=== PATIENT | male | born 1960 | race Caucasian/White ===

== ENCOUNTER 2017-09-04 13:00 | Inpatient (IN) | payer BC ==
[2017-09-15] MEDS ORDERED: MECLIZINE 25 MG TABLET PO ONE (06:00)
[2017-09-15] MEDS ORDERED: ACETAMINOPHEN 1,000 MG/100 ML BTL IV ONE (06:00)
[2017-09-15] MEDS ORDERED: FAMOTIDINE 20MG TABLET PO ONE ×2 (06:00→07:44)
[2017-09-15] MEDS ORDERED: VANCOMYCIN HCL 1,000 MG in DEXTROSE 5 % IN WATER 250 ML IVPB ONE ×2 (06:00)
[2017-09-15] MEDS ORDERED: METOCLOPRAMIDE 10 MG TABLET PO ONE (06:00)
[2017-09-15] MEDS ORDERED: CELECOXIB 100 MG CAPSULE PO ONE (06:00)
[2017-09-15] MEDS ORDERED: BUPIVACAINE LIPOSOME 266MG/20ML VIAL IV ONE (07:44)
[2017-09-15] MEDS ORDERED: TRANEXAMIC ACID 1,000 MG/10 ML ML IV ONE ×2 (07:44)
[2017-09-15] MEDS ORDERED: BUPIVACAINE 0.5% W/EPI MPF 30 ML VIAL IVP ONE ×2 (07:44)
[2017-09-15] MEDS ORDERED: DEXAMETHASONE 4 MG/ML 1ML VIAL IVP ONE (07:44)
[2017-09-15] MEDS ORDERED: ROPIVACAINE HCL (NAROPIN) /PF 5MG/ML 20ML VIAL IV ONE (07:44)
[2017-09-15] MEDS ORDERED: VANCOMYCIN HCL 1 GM VIAL IVPB ONE ×2 (07:44)
[2017-09-15 09:01] LABS: ABO GROUP A; ANTIBODY SCREEN NEGATIVE (NEGATIVE); RH TYPE POSITIVE
[2017-09-15] MEDS ORDERED: ACETAMINOPHEN W/ CODEINE 300MG/30MG TABLET PO PRN ×2 (10:21)
[2017-09-15] MEDS ORDERED: ACETAMINOPHEN 325 MG TAB PO PRN (10:21)
[2017-09-15] MEDS ORDERED: HYDROMORPHONE HCL 2 MG/ML VIAL IM PRN ×2 (10:21)
[2017-09-15] MEDS ORDERED: METOCLOPRAMIDE HCL 10 MG/2 ML VIAL IVP PRN (10:21)
[2017-09-15] MEDS ORDERED: DIPHENHYDRAMINE HCL 25 MG CAPSULE PO PRN (10:21)
[2017-09-15] MEDS ORDERED: ONDANSETRON HCL IV 4 MG/2 ML VIAL IVP PRN (10:21)
[2017-09-15] MEDS ORDERED: HYDROCODONE/APAP 5/325MG TABLET PO PRN ×2 (10:21)
[2017-09-15] MEDS ORDERED: KETOROLAC 30 MG/ML VIAL IVP PRN ×2 (10:21)
[2017-09-15] MEDS ORDERED: HYDROCODONE/APAP 7.5/325MG TABLET PO PRN (10:21)
[2017-09-15] MEDS ORDERED: ACETAMINOPHEN W/ CODEINE 300MG/60MG TABLET PO PRN ×2 (10:21)
[2017-09-15] MEDS ORDERED: PROMETHAZINE HCL 12.5 MG in 0.9 % SODIUM CHLORIDE 100ML 50 ML IVPB PRN (10:21)
[2017-09-15] MEDS ORDERED: NALOXONE 0.4 MG/1 ML VIAL IVP PRN (10:21)
[2017-09-15] MEDS ORDERED: TRAMADOL HCL 50 MG TABLET PO PRN ×2 (10:21)
[2017-09-15] MEDS ORDERED: ZOLPIDEM TARTRATE 5 MG TABLET PO PRN (10:21)
[2017-09-15] MEDS ORDERED: BISACODYL 10 MG SUPP RC PRN (10:21)
[2017-09-15] MEDS ORDERED: MAGNESIUM HYDROXIDE 30 ML UDC PO PRN (10:21)
[2017-09-15] MEDS ORDERED: AL HYDROX/MAG HYDROX 30ML UD PO PRN (10:21)
[2017-09-15] MEDS ORDERED: PATIENT OWN MED: PROAIR HFA INH PRN (13:00)
[2017-09-15] MEDS ORDERED: FENTANYL PF 100MCG/2ML VIAL IV ONE (14:00)
[2017-09-15] MEDS ORDERED: PROPOFOL 10 MG/ML VIAL IV ONE (14:00)
[2017-09-15] MEDS ORDERED: MIDAZOLAM HCL 2MG/2ML VIAL IV ONE (14:00)
[2017-09-15] MEDS ORDERED: LIDOCAINE 1% MDV (10MG/ML) 20ML VIAL SQ ONE (14:00)
[2017-09-15] MEDS: TRIAMTERENE 37.5/HCTZ 25 CAPSULE PO SCH (15:40)
[2017-09-15] MEDS: HYDROCODONE/APAP 7.5/325MG TABLET PO PRN ×2 (15:40→19:29)
[2017-09-15] MEDS: QUINAPRIL HCL 10 MG TABLET PO SCH (15:41)
--- NOTE | 2017-09-15 15:46 | Rehab Evaluation ---
Patient Information - Patient Information Diagnosis: R knee OA Ordered Treatment: PT Evaluate and Treat Status: Initial Evaluation Surgery: Yes (TKA R LE) Date of Surgery: 09/15/17 Past Medical/Surgical Hx: PAST MEDICAL/SURGICAL HISTORY Past Surgical History c scope EGD PMH - Respiratory Hx Respiratory Disorders Yes Hx Asthma Yes: controlled with inhalers humidity and dampness bothers it Hx Bronchitis Yes Hx of SOB Yes: occassionally PMH - Cardiovascular Hx Cardiovascular Disorders Yes Hx Hypertension Yes: on meds good control Exercise Tolerance Good PMH - Neuro Hx Neurological Disorders No PMH - GI Hx Gastrointestinal Disorders No PMH - Hx Genitourinary Disorders No PMH - Endocrine Hx Endocrine Disorders Yes Hx Diabetes Yes: dx'd 10 yrs ago Hx of NIDDM Yes Comment: A1C 6.2 PMH - Musculoskeletal Hx Musculoskeletal Disorders Yes Hx Arthritis Yes: right knee PMH - Psych Hx Psychiatric Problems No PMH - Hematology/Oncology Hx Hematology/Oncology No Disorders Premorbid Status: Detail (The patient was independent with mobility prior to surgery) Social History: Detail Precautions: [place], Fall, Other (WBAT on R LE) - Time With Patient Total Time Spent With Patient (Min): 30 Treatment Procedures: Detail (Initial Evaluation) Subjective Information - Subjective Information Per Patient (The patient has minimal complaints of pain. The patient primarily feels pressure in his R knee.) Objective Data - Mental Status Patient Orientation: Oriented x3 - Visual Perception Appears within normal limits for therapeutic activities - ROM Not within normal limits (The patient's R knee AROM is limited as to be expected s/p surgery. All other LE AROM is WNL.) - Strength/Tone Not within normal limits (The patient's R LE strength was not tested s/p sugery , however is functional , the patient is able to acheive a SLR. The patient's L LE strength is 4+ to 5/5.) - Bed Mobility Independent (The patient was independent with supine to and from sit transfer.) - Transfers Independent (The patient was independent with sit to and from stand transfer.) - Balance Balance Sitting: Good Balance Standing: Good - Sensation Intact - Gait Detail (The patient ambulated independently with standard walker a distance of 120 feet x 1 WBAT on the R LE.) Therapy Assessment - Therapy Assessment Detail (The patient was independent with bed mobility , transfers and ambulation. Feel the patient will progress well with mobility.) Patient Education - Patient Education Teaching Topic: Exercise/Activity (The patient was independent with HEP of TKA exercises including: heel slides, SLR, ankle pumps, gluteal sets, quad sets and hamstring sets.) Response: Return Demonstration Teaching Method: Discussion, Handout Teaching Recipient: Patient Barriers To Learning: None Problem List - Problem List Physical Therapy Problem List: Detail (1) Decreased R knee AROM and strength as to be expected following surgery. 2) Nonambulatory on stairs) Goals - Goals Physical Therapy Goals: The patient will ambulate on stairs with supervision for safety. Prognosis - Prognosis Good Plan - Plan Physical Therapy Plan: PT 1-2 visits for gait training on stairs.
[2017-09-15] MEDS: DEXTROSE 5 % AND 0.9 % NACL 1,000 ML IV PRN (17:17)
[2017-09-15] MEDS: GLIPIZIDE 5 MG PO SCH (17:20)
[2017-09-15] MEDS: PATIENT OWN MED: METFORMIN 500 MG PO SCH (17:20)
[2017-09-15] MEDS ORDERED: PATIENT OWN MED: MONTELUKAST 10 MG PO SCH (17:30)
[2017-09-15] MEDS: VANCOMYCIN HCL 1,000 MG in DEXTROSE 5 % IN WATER 250 ML IVPB SCH ×2 (20:57)
[2017-09-15] MEDS: FERROUS SULFATE 325 MG TAB PO SCH (21:04)
[2017-09-15] MEDS: DOCUSATE SODIUM 100 MG CAPSULE PO SCH (21:04)
[2017-09-16] MEDS: HYDROCODONE/APAP 7.5/325MG TABLET PO PRN ×4 (00:10→13:47)
[2017-09-16] MEDS: DEXTROSE 5 % AND 0.9 % NACL 1,000 ML IV PRN (06:25)
[2017-09-16 06:33] LABS: HEMATOCRIT 41.4 % (42.0-52.0); HEMOGLOBIN 13.3 gm/dl (14.0-18.0)
[2017-09-16] MEDS: PATIENT OWN MED: METFORMIN 500 MG PO SCH (09:05)
[2017-09-16] MEDS: GLIPIZIDE 5 MG PO SCH (09:05)
[2017-09-16] MEDS: QUINAPRIL HCL 10 MG TABLET PO SCH (09:06)
[2017-09-16] MEDS: TRIAMTERENE 37.5/HCTZ 25 CAPSULE PO SCH (09:07)
[2017-09-16] MEDS: FERROUS SULFATE 325 MG TAB PO SCH (09:08)
[2017-09-16] MEDS: DOCUSATE SODIUM 100 MG CAPSULE PO SCH (09:08)
[2017-09-16] MEDS: VANCOMYCIN HCL 1,000 MG in DEXTROSE 5 % IN WATER 250 ML IVPB SCH ×2 (09:09)
[2017-09-16] MEDS ORDERED: CELECOXIB 100 MG CAPSULE PO SCH (10:00)
[2017-09-16] MEDS ORDERED: RIVAROXABAN 10 MG TABLET PO SCH (10:00)
[2017-09-16] MEDS ORDERED: METOPROLOL SUCC 50 MG TABLET PO SCH (10:00)
[2017-09-16] MEDS ORDERED: ATORVASTATIN 20 MG TABLET PO SCH (10:00)
--- NOTE | 2017-09-16 11:21 | Physical Therapy Tx Note ---
Physical Therapy Tx Note - Treatment Note Tolerated: Good Total Time Spent With Patient: 20 Physical Therapy Tx Note: Detail (The patient was in bed when PT arrived. The patient ambulated independently WBAT on the R LE with standard walker a distance of 108 feet x 1. The patient ambulated on 3 steps and 7 steps with use of one railing and folded walker using proper technique with supervision for safety. The patient returned to bed with all equipment in place and call light within reach. The patient has met all inpatient goals and is discharged from inpatient PT.) Physical Therapy Problem List: Detail (1) Decreased R knee AROM and strength as to be expected following surgery. 2) Nonambulatory on stairs) Physical Therapy Goals: The patient will ambulate on stairs with supervision for safety.(Goal met) Physical Therapy Plan: All inpatient PT goals have been met. The patient is to continue with Home PT.
--- NOTE | 2017-09-16 13:04 | Rehab Evaluation ---
Patient Information - Patient Information Diagnosis: R knee OA Ordered Treatment: OT Evaluate and Treat Status: Initial Evaluation Surgery: Yes (TKA R LE) Date of Surgery: 09/15/17 Past Medical/Surgical Hx: PAST MEDICAL/SURGICAL HISTORY Past Surgical History c scope EGD PMH - Respiratory Hx Respiratory Disorders Yes Hx Asthma Yes: controlled with inhalers humidity and dampness bothers it Hx Bronchitis Yes Hx of SOB Yes: occassionally PMH - Cardiovascular Hx Cardiovascular Disorders Yes Hx Hypertension Yes: on meds good control Exercise Tolerance Good PMH - Neuro Hx Neurological Disorders No PMH - GI Hx Gastrointestinal Disorders No PMH - Hx Genitourinary Disorders No PMH - Endocrine Hx Endocrine Disorders Yes Hx Diabetes Yes: dx'd 10 yrs ago Hx of NIDDM Yes Comment: A1C 6.2 PMH - Musculoskeletal Hx Musculoskeletal Disorders Yes Hx Arthritis Yes: right knee PMH - Psych Hx Psychiatric Problems No PMH - Hematology/Oncology Hx Hematology/Oncology No Disorders Premorbid Status: Detail (The patient was independent with mobility and all I/ ADL's (including driving, yardwork, groceries, etc.) prior to surgery.) Social History: Detail (Pt. lives in a bi-level house with his , son and daughter. recently injured LE, and is unable to assist at this time, but son and daughter can assist if needed. Bathroom is equipped with elevated toilet seat, walk-in shower with shower chair and hand held shower head. Pt. has a cane, walker, direct marketing analyst, and long handled sponge.) Precautions: [place], Fall, Other (WBAT on R LE) - Time With Patient Total Time Spent With Patient (Min): 20 Treatment Procedures: Detail (OT Eval Low. Session was concluded with pt. supine in bed, with call light and bedside table within reach.) Subjective Information - Subjective Information Per Patient Objective Data - Pain Pain Present: Yes (Pt. stated "its not bad, just had pain meds about an hour ago " but rated 5/10.) - Mental Status Patient Orientation: Oriented x3 - Visual Perception Appears within normal limits for therapeutic activities - ROM Within normal limits (BUE all motions except R wrist lacking slight supination and wrist ext (but still WFL).) - Strength/Tone Within normal limits (BUE 5/5 MMT all planes.) - Coordination Appears within normal limits for therapeutic activities - Bed Mobility Independent (supine <>sit EOB.) - Transfers Independent (sit<>stand EOB to walker) - Balance Balance Sitting: Good Balance Standing: Fair - Sensation Intact (light touch intact Guillermo. fingertips) - ADL's/IADL's Detail (Educ. was provided in adaptive dressing techniques and AE. Pt. returned demo. and verbalized understanding. Pt. dressed modified Ind. with use of direct marketing analyst (t-shirt, elastic waist shorts). Pt. plans to wear slip on shoes, and receive assistance with socks if he wears them at home.) Therapy Assessment - Therapy Assessment Detail (In-pt. OT services not recommended at this time. Pt. has a positive support system with assistance if needed during recovery period, and a good environmental set-up.) Patient Education - Patient Education Teaching Topic: Equipment Use, Exercise/Activity Response: Return Demonstration, Verbalize Understanding Teaching Method: Discussion, Demonstration Teaching Recipient: Patient Barriers To Learning: None Problem List - Problem List Physical Therapy Problem List: Detail (1) Decreased R knee AROM and strength as to be expected following surgery. 2) Nonambulatory on stairs) Goals - Goals Physical Therapy Goals: The patient will ambulate on stairs with supervision for safety.(Goal met) Prognosis - Prognosis Good Plan - Plan Physical Therapy Plan: All inpatient PT goals have been met. The patient is to continue with Home PT. Occupational Therapy Plan: D/C from in-pt. OT services. Pt. was educ. to call rehab dept. if he has questions after returning home.
--- NOTE | 2017-09-16 20:54 | Operative Note ---
DATE OF SURGERY: 09/15/2017 PREOPERATIVE DIAGNOSES: RIGHT KNEE END-STAGE ARTHROSIS. POSTOPERATIVE DIAGNOSES: RIGHT KNEE END-STAGE ARTHROSIS. PROCEDURE: RIGHT TOTAL KNEE ARTHROPLASTY. SURGEON: DARRELL MORALES M.D. ANESTHESIA: SPINAL, BARRY CRAIG CRNA. COMPLICATIONS: NONE. BLOOD LOSS: MINIMAL. TOURNIQUET TIME: ABOUT 65 MINUTES. OPERATIVE FINDINGS: [id number] medial compartment arthrosis and defect in the anterior lateral tibial plateau. COMPONENTS PLACED: 2 gm Vancomycin, cement, [employer] Journey II Oxinium size 9 femoral component, size 7 tibial baseplate, an 11 mm thick tibial poly insert, and a 35 mm cemented patellar component. INDICATIONS FOR OPERATION: This is a 57-year-old large male who has had end- stage arthrosis for several years. He failed nonoperative treatment and is scheduled for the procedure above. I explained the risks and benefits to him in detail for his diagnoses and procedures including but not limited to, infection , nerve injury, vessel injury, persistent pain, persistent numbness and tingling in his leg, periprosthetic fracture, need for resection arthroplasty should the components become infected or loosened, need for anticoagulation to prevent blood clots and the risks associated with these medications, and need for further procedures and all of his questions were answered. The rehab and healing course were outlined and he agreed to proceed. PROCEDURE: The patient was brought to the O.R. and placed in the supine position for surgery. Spinal anesthesia induced and his right lower extremity and knee were prepped and draped in sterile fashion. The right knee was prepped again with ChloraPrep after it was draped. Intraoperative time-out was performed. The leg was exsanguinated with an Esmarch. The knee was flexed and the tourniquet inflated to 215 mmHg pressure. The skin and subcutaneous tissue was dissected down. Medial and lateral skin flaps were developed. I incised the capsule medially around the medial border of the patella to the tibial tubercle. I incised the vastus medialis in line with its fibers in a mid vastus approach. Everted the patella. Partially resected the retropatellar fat pad, elevated the capsule subperiosteally on the tibial plateau and flexed the knee. He had [id number] medial compartment arthrosis. I drilled the intracondylar drill hole and inserted the intramedullary guide savita and 6 degree cutting block aligned off the distal femoral condyle. It was pinned in the +2 mm position. Next, we cut the distal femoral condyles. Next, we placed the sizing jig on the distal femoral condyle, sized it to be right on size 9 jumbo component. We brought the size 9 5-in-1 cutting jig. We dialed in the anterior cut so it would come out flush without notching and we cut that. It was a good cut. We then pinned it and cut the remaining chamfer cuts in the usual fashion. We placed a size 9 trial femoral component. It fit nicely. We centered it, pinned it, and reamed out osteophytes off the periphery. We inserted the resection collar and reamed out and box-osteotomed out the cruciate bone block. Attention was turned to the tibia now. We exposed the tibia, removed the meniscus, and seated the spikes with the external alignment jig in the intertubercular groove two fingerbreadths distally off the anterior cortex. We referenced for a 9 mm cut off the higher medial plateau covering nicely the defect in the anterolateral plateau. We covered it nicely, checking with a resection railroad car checker and then pinned it in place with two anterior and posterior pins. We rechecked alignment of the cuts using a drop savita centered on the tibial anatomic axis, cross-pinned it and then cut the tibia. We removed osteophytes from the posterior femoral condyles using a curved osteotome. We checked flexion and extension gaps. We has symmetric flexion and extension gaps with an 11 thick poly insert with 2 to 3 mm of varus valgus laxity. Overall alignment of cuts were in anatomic valgus orientation in extension. Next, I took the knee into flexion, sized the tibial baseplate to a size 7, replaced all trial components, set the rotation of the tibial baseplate again in extension using the alignment savita centered on the hip joint and ankle joint. I marked with electrocautery vazquez on the tibial cortex off the laser vazquez on the tibial baseplate. Next, we measured the patella. We set the cutting jig for a 9 mm thick poly insert. We cut the patella and remeasured. It was right on her premeasured size. We sized it to be 35 mm. We medialized as much as possible and drilled three peg holes, mixed cement, and did a trial range of motion. The patella tracked nicely handsfree and had full extension and flexion to 130 to 140 degrees. We took the knee in flexion and exposed the tibia and then seated the tibial baseplate off the previously placed electrocautery vazquez, pinned it in place and reamed out and keel-punched the keel hole. We placed a bone plug in the femoral canal hole and placed the drill for the keel in the keel hole and pre-coated both surfaces and impacted down the tibial component and then the femoral component. We placed the trial tibial poly liner and clamped down the patellar component until the cement hardened. Once cement hardened, we took the knee into flexion. We distracted the knee with bone hook and sponge, removed the trial poly inserted, removed any excess cement around the edges of the components. We injected our joint mixture again deep to superficial working in the mediolateral capsule, mediolateral periosteum, vastus medialis, and subcutaneous regions of the patellar tendon. Next, we inserted the real tibial poly insert and verified it was interlocked medially and laterally. Final range of motion revealed the same. We irrigated copiously. I closed the knee in flexion using running #2 Quill suture and irrigated. We closed the skin deep with 2-0 Vicryl, injected the skin superficially with 0.5% Marcaine with Epinephrine, an Acticoat dressing was applied as provisional dressing. It will be changed to SUMAN prior to discharge. He will follow-up in two weeks. cc: Dr. Santiago Rodrigez JOB NUMBER [id number] [facility]
== END 2017-09-16 14:33 | disposition home health service (06) | DRG 470 ==
LOC: SUR 09-15 07:43 → MEDSURG 09-15 07:43 → EDSTATUS 09-15 13:00 → SUR 09-15 14:08 → MEDSURG 09-15 14:08
PROVIDERS: ADMIT Orthopaedic Surgery; ATTEND Orthopaedic Surgery
PROC: 0SRC069 Replacement of Right Knee Joint with Oxidized Zirconium on Polyethylene Synthetic Substitute, Cemented, Open Approach (ICD-10-PCS; principal; 2017-09-15 10:00)
DX: M17.11 Unilateral primary osteoarthritis, right knee (principal); I10 Essential (primary) hypertension; E11.9 Type 2 diabetes mellitus without complications; J45.909 Unspecified asthma, uncomplicated; E78.00 Pure hypercholesterolemia, unspecified
CPT/HCPCS: 36416; 82948; 85014; 85018; 86850; 86900; 86901; 97530; J7042; J7060